=== PATIENT | male | born 1950 | race Caucasian/White ===

== ENCOUNTER 2023-01-19 11:10 | Inpatient (IN) | payer MEDICARE, SELFPAY ==
[2023-01-19 11:16] VITALS: BP 119/79; PULSE 69; RESP 16; O2SAT 96
--- NOTE | 2023-01-19 16:21 | PM.IMHP1 ---
Hospitalist- H&P: MARLA History of Present Illness Date Seen: 01/19/23 Chief complaint: Inpatient respite Narrative: Zac Lala is a 72 year old male admitted to hospice respite care on 01/19. He was admitted to hospice in September; at that time admission diagnosis was acute on chronic respiratory failure with severe hypoxia. His course is complicated by a progressive neurologic disease with symptom onset in March 2022. Workup in [place] did not reveal a formal diagnosis. In July of 2022, patient was hospitalized for progressive dysphagia and had a G-tube placed at that time with the recommendation for no p.o. intake given severe aspiration risk. He was diagnosed with COVID in August of 2022 with severe respiratory distress and hypoxia. Since admission, his lung function has subjectively and objectively improved, and he is currently not on supplemental oxygen. His neurologic condition continues to worsen and he remains nonambulatory. He has a Maya catheter in place and is incontinent of bowel. Zac occasionally perseverates and not being able to eat; the hospice team has had extensive discussions with patient and about goals of care. When specifically questioned, Zac does note that he is very uncomfortable with aspiration, but does like to have a root beer on occasion. Histories updated below. [facility] Medical History (Updated 01/19/23 @ 19:09 by Nu Alvarenga MD) History of gastrostomy tube placement G tube feedings ?Z93.1 - Gastrostomy status (ICD-10) Incontinent of feces ?R15.9 - Full incontinence of feces (ICD-10) Progressive neurological disorder ?R29.818 - Other symptoms and signs involving the nervous system (ICD-10) Allergic rhinitis ?J30.9 - Allergic rhinitis, unspecified (ICD-10) Depression ?F32.A - Depression, unspecified (ICD-10) MICHELLE (obstructive sleep apnea) ?G47.33 - Obstructive sleep apnea (adult) (pediatric) (ICD-10) CAD (coronary artery disease) ?I25.10 - Atherosclerotic heart disease of [place] coronary artery without angina pectoris (ICD-10) Paroxysmal atrial fibrillation ?I48.0 - Paroxysmal atrial fibrillation (ICD-10) Surgical History (Updated 01/19/23 @ 19:09 by Nu Alvarenga MD) S/P CABG x 3 ?Z95.1 - Presence of aortocoronary bypass graft (ICD-10) Social History (Updated 01/19/23 @ 19:10 by Nu Alvarenga MD) Narrative: Lives with Shanae in [place]. Hospice patient. DNR/DNI No current smoking or ETOH use. 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 Meds Home Medications and Allergies Home Medications Medication Instructions Recorded Confirmed Type atropine 1 % eye drops 2 drp PO Q2H PRN 01/19/23 01/19/23 History carvedilol 12.5 mg tablet 12.5 mg PO Q12H 01/19/23 01/19/23 History duloxetine 30 mg capsule,delayed 30 mg feeding tube DAILY 01/19/23 01/19/23 History release sprinkle haloperidol lactate 2 mg/mL oral 1 mg feeding tube Q6H PRN 01/19/23 01/19/23 History concentrate hyoscyamine sulfate 0.125 mg 0.125 mg PO Q4-6H PRN 01/19/23 01/19/23 History sublingual tablet lansoprazole 30 mg delayed 30 mg feeding tube DAILY 01/19/23 01/19/23 History release,disintegrating tablet lidocaine 4 % topical patch 1 patch topical DAILY 01/19/23 01/19/23 History lorazepam 2 mg/mL oral concentrate 1 mg feeding tube BID@09,16 01/19/23 01/19/23 History morphine concentrate 100 mg/5 mL 5 - 20 mg PO Q1H PRN 01/19/23 01/19/23 History (20 mg/mL) oral solution polyethylene glycol 3350 17 gram 17 g feeding tube DAILY 01/19/23 01/19/23 History oral powder packet quetiapine 25 mg tablet 75 mg feeding tube BID 01/19/23 01/19/23 History Allergies Allergy/AdvReac Type Severity Reaction Status Date / Time No Known Drug Allergies Allergy Verified 01/19/23 16:00 Exam Narrative: Exam Narrative: Zac is lying in bed comfortably and answering questions appropriately. He does occasionally perseverate on the barium swallow exam was done earlier this year that led to his NPO recommendation, but he is redirectable. Const: Vital Signs, click to edit/add: Vital Signs - 24 hr 01/19/23 11:16 Pulse Rate [Pulse Oximeter] 69 Respiratory Rate 16 Blood Pressure [Le ft Arm] 119/79 Pulse Oximetry 96 Oxygen Delivery Me thod Room Air Assessment and Plan Assessment and plan (1) Hospice care patient: Status: Acute (2) At high risk for aspiration: Status: Acute (3) Progressive neurological disorder: Status: Acute Plan - comfort focused measures during respite stay - occasional root beer per home routine
[2023-01-19] MEDS: LORazepam 1 MG TABLET PO (16:42)
--- NOTE | 2023-01-19 17:09 | PC.NURSE ---
Addendum entered by Maria Luisa Rehman RN 01/19/23 19:16: When up to [facility] via josefa for BM, noted small amount of blood when wiping, when looked at bottom is red and blanchable with small laceration on coccyx, cleansed and mepilex applied. Original Note: Arrived with hospice nurse Michelle present. Nurse to Nurse given in room. Pt alert, oriented, and pleasant and using call light appropriately. Pt uses Josefa lift to transfer. Pt has mepilex over bilateral ankles, skin blanchable, feet elevated on pillows. PEG feeding done per /caregiver instructions. Pt tolerated well. Pt denies pain, resting comfortably. Maya catheter present and patent.
[2023-01-19] MEDS: ACETAMINOPHEN 500 MG TABLET 1000 MG FEED TUBE (20:10)
[2023-01-19] MEDS: carvediloL 6.25 MG TABLET 12.5 MG PO (20:12)
[2023-01-19] MEDS: QUETIAPINE 25 MG TABLET 75 MG PO (20:12)
--- NOTE | 2023-01-20 06:42 | PC.NURSE ---
Pt alert and oriented x2, pt knows he is in hospital and why he is here but could not recall day of week. Pt pleasant and cooperative. Pt reports 1/10 pain in lower back, pain managed with scheduled medications and repositioning. Pt slept throughout most of night. Night uneventful.
[2023-01-20] MEDS: OMEPRAZOLE 20 MG CAPSULE DR PO (06:47)
[2023-01-20 08:44] VITALS: BP 114/78; PULSE 75; RESP 18; TEMP 36.7; O2SAT 100
[2023-01-20] MEDS: LIDOCAINE 5% PATCH 1 PATCH TRANSDERMA (10:17)
[2023-01-20] MEDS: ACETAMINOPHEN 500 MG TABLET 1000 MG FEED TUBE ×2 (10:17→21:07)
[2023-01-20] MEDS: DULOXETINE 30 MG CAPSULE DR PO (10:17)
[2023-01-20] MEDS: carvediloL 6.25 MG TABLET 12.5 MG PO ×2 (10:17→21:07)
[2023-01-20] MEDS: polyethylene glycoL 3350 17 GM PACK PO (10:18)
[2023-01-20] MEDS: LORazepam 1 MG TABLET PO ×2 (10:18→17:16)
[2023-01-20] MEDS: QUETIAPINE 25 MG TABLET 75 MG PO ×2 (13:03→21:06)
[2023-01-20] MEDS: CALCIUM CARBONATE 500 MG CHEW PO (13:04)
--- NOTE | 2023-01-20 19:02 | PC.NURSE ---
Nursing Care Hours: [id number] Pt this shift calm and cooperative, alert. Oriented to self and place. At times is confused aeb thinking that he switched rooms and needed to get back to his room so his can find him. Reoriented to place and situation. Pt is fidgety with Maya bag and restless in bed. Catheter patent, dark cloudy u/o, no BM. VSS in morning. Scant scratch to L logan, cleaned and band-aid applied.
[2023-01-21] MEDS: OMEPRAZOLE 20 MG CAPSULE DR PO (06:37)
--- NOTE | 2023-01-21 06:50 | PC.NURSE ---
Pt is alert and oriented x3, can be forgetful with time. Afebrile. Pt reports 1/10 back and left hip pain, pt was repositioned and pt reported pain feeling better. Pt stated ?I prefer leaning towards my left side.? Pt denies, chest pain, SOB and N/V.?Pt slept throughout most of night.?Night uneventful.
[2023-01-21 08:15] VITALS: BP 115/77; PULSE 79; RESP 16; TEMP 36.4; O2SAT 98
[2023-01-21] MEDS: LIDOCAINE 5% PATCH 1 PATCH TRANSDERMA (09:20)
[2023-01-21] MEDS: ACETAMINOPHEN 500 MG TABLET 1000 MG FEED TUBE ×2 (09:21→20:55)
[2023-01-21] MEDS: carvediloL 6.25 MG TABLET 12.5 MG PO ×2 (09:21→20:56)
[2023-01-21] MEDS: DULOXETINE 30 MG CAPSULE DR PO (09:21)
[2023-01-21] MEDS: QUETIAPINE 25 MG TABLET 75 MG PO ×2 (09:21→20:57)
[2023-01-21] MEDS: polyethylene glycoL 3350 17 GM PACK PO (09:21)
[2023-01-21] MEDS: LORazepam 1 MG TABLET PO ×2 (09:26→16:07)
--- NOTE | 2023-01-21 18:20 | PC.NURSE ---
Pt alert and oriented. Pt had no complaints of pain. Pt up to chair during shift. Pt Americo lift and tolerated well. Pt had medical claims assistant visit in morning and children's aide with Pt majority of afternoon. ?Pt received three tube feedings at 830am, 1230pm and 1800. ?
[2023-01-21] MEDS: HYOSCYAMINE SULFATE 0.125 MG TAB PO (20:56)
[2023-01-21] MEDS: LORazepam 0.5 MG TABLET PO (20:57)
[2023-01-22] MEDS: OMEPRAZOLE 20 MG CAPSULE DR PO (06:10)
[2023-01-22 08:00] VITALS: BP 113/74; PULSE 75; RESP 18; TEMP 36.6; O2SAT 98
[2023-01-22] MEDS: HYOSCYAMINE SULFATE 0.125 MG TAB PO ×3 (08:38→21:23)
[2023-01-22] MEDS: polyethylene glycoL 3350 17 GM PACK PO (08:40)
[2023-01-22] MEDS: ACETAMINOPHEN 500 MG TABLET 1000 MG FEED TUBE ×2 (08:42→21:22)
[2023-01-22] MEDS: LORazepam 1 MG TABLET PO ×2 (08:42→15:29)
[2023-01-22] MEDS: carvediloL 6.25 MG TABLET 12.5 MG PO ×2 (08:43→21:23)
[2023-01-22] MEDS: DULOXETINE 30 MG CAPSULE DR PO (08:44)
[2023-01-22] MEDS: LIDOCAINE 5% PATCH 1 PATCH TRANSDERMA (08:44)
[2023-01-22] MEDS: QUETIAPINE 25 MG TABLET 75 MG PO ×2 (08:45→21:24)
--- NOTE | 2023-01-22 13:15 | PC.NURSE ---
PATIENT ON BEDREST WITH STAFF PROVIDING REPOSITIONING Q2H. OWEN CATHETER PATENT AND DRAINING CLEAR PALE YELLOW URINE WITH NO ODOR OR HEMATURIA NOTED. PROTECTIVE DRESSINGS REMAIN IN PLACE TO COCCYX AND BILATERAL ANKLES. PATIENT NOTED TO BE ALERT & ORIENTED TO SELF AND HOSPITAL ENVIRONMENT THOUGH CONFUSED REGARDING CORRECT PLACE TODAY. ALL MEDS GIVEN BY G TUBE OTHER THAN PO HYOSYCAMINE. NO BM NOTED SO FAR THIS SHIFT THOUGH BOWEL SOUNDS ARE NOTED TO BE ACTIVE IN ALL FOUR QUADRANTS. LUNG SOUNDS NOTED TO BE CLEAR TO ALL LOBES BILATERALLY. VSS AND PATIENT HAS BEEN AFEBRILE. HE HAS BEEN DENYING PAIN WHEN ASKED. G TUBE PATENT AND FLUSHED WITHOUT DIFFICULTY. CALL LIGHT WITHIN REACH.
[2023-01-22] MEDS: bisacodyL 10 MG SUPP.RECT PR (18:07)
--- NOTE | 2023-01-22 18:17 | PC.NURSE ---
Bank Clerk provided new protective dressing to L inner thigh this shift as Hospice PROMOTIONS OFFICER reported old dressing came off with AM cares. Bank Clerk visualized no open areas to skin.
--- NOTE | 2023-01-22 18:44 | PC.NURSE ---
While this sports book writer was performing patient's evening feeding by PEG tube, pt reported, I just want to be done with this tube business. I was not aware this was going to be a superintendent container terminal thing. Pt talking about how he misses having [employer] and coffee and voicing frustrations with having PEG tube fpc. Business Objects Architect did leave note for MD providing update of patient's comments regarding not wanting to continue with PEG tube. Preceptor RN also updated.
[2023-01-22] MEDS: LORazepam 0.5 MG TABLET PO (21:23)
[2023-01-23] MEDS: OMEPRAZOLE 20 MG CAPSULE DR PO (06:54)
[2023-01-23 07:58] VITALS: BP 113/81; PULSE 76; RESP 18; TEMP 37.1; O2SAT 99
--- NOTE | 2023-01-23 08:13 | PC.NURSE ---
Patient pleasant and cooperative with cares. Remained in bed. Denied pain. G-tube patent and medications given without any resistance.
[2023-01-23] MEDS: HYOSCYAMINE SULFATE 0.125 MG TAB PO ×3 (08:20→20:18)
[2023-01-23] MEDS: LORazepam 1 MG TABLET PO ×2 (08:21→15:43)
[2023-01-23] MEDS: ACETAMINOPHEN 500 MG TABLET 1000 MG FEED TUBE ×2 (08:22→20:18)
[2023-01-23] MEDS: LIDOCAINE 5% PATCH 1 PATCH TRANSDERMA (08:22)
[2023-01-23] MEDS: carvediloL 6.25 MG TABLET 12.5 MG PO ×2 (08:23→20:18)
[2023-01-23] MEDS: QUETIAPINE 25 MG TABLET 75 MG PO ×2 (08:24→20:18)
[2023-01-23] MEDS: polyethylene glycoL 3350 17 GM PACK PO (08:24)
[2023-01-23] MEDS: DULOXETINE 30 MG CAPSULE DR PO (08:24)
--- NOTE | 2023-01-23 09:22 | PC.SOCIAL ---
Discharge Planning: Called spouse to clarify discharge plan. Marycruz Lala [phone] states that hospice patient will be picked up on Wednesday 01/24 at 13:00. She states that it is the same place from [place] that dropped him off. She could not remember the name of the agency, but she states it will be the same person that brought him in on Thursday. Marycruz asked that if the green transfer harness (belonging to [facility]'s medical supplier) for the Americo come back in his wheel chair -as she will need it to get him back in bed. She will call the [facility] to pick it up when they are done with it. Patient will be transferring to a new hospice but not until Friday 01/26. For any questions call Hospice at [phone] or the spouse Marycruz at [phone].
--- NOTE | 2023-01-23 14:51 | PC.NURSE ---
End of shift: Patient states he has chronic minimal discomfort to L leg which has been managed with rest, repositioning and scheduled Tylenol. Green Building Design Specialist did offer for staff to assist patient into the chair though patient stated he is more comfortable in bed. Patient noted to have some redness to top of penis under foreskin which core rescuer reports comes and goes. Staff applied zinc protective cream to this area to promote healing. No s/sx of infection observed at PEG tube insertion site. Staff continue to provide repositioning Q2H. Maya catheter remains patent with no odor or hematuria noted. Bed alarm on. Patient noted to have dry skin to bilateral feet with lotion applied. Lung sounds clear to all lobes bilaterally and bowel sounds have been active x 4. No c/o N/V or CP. HOB elevated 30-45 degrees due to patient being on PEG gravity feedings along with high aspiration risk. VSS and patient has been afebrile.
[2023-01-23] MEDS: LORazepam 0.5 MG TABLET PO (20:17)
--- NOTE | 2023-01-23 22:24 | PC.NURSE ---
fit [id number]- Patient is able to make needs known, though he is forgetful/confused. He is turned and repositioned with pillows for offloading. G-tube used for med administration and feed. Maya is patent and draining.
[2023-01-24] MEDS: OMEPRAZOLE 20 MG CAPSULE DR PO (06:43)
[2023-01-24 08:00] VITALS: BP 99/69; PULSE 73; RESP 18; TEMP 37.1; O2SAT 99
[2023-01-24] MEDS: LIDOCAINE 5% PATCH 1 PATCH TRANSDERMA (08:42)
[2023-01-24] MEDS: LORazepam 1 MG TABLET PO (08:42)
[2023-01-24] MEDS: DULOXETINE 30 MG CAPSULE DR PO (08:43)
[2023-01-24] MEDS: carvediloL 6.25 MG TABLET 12.5 MG PO (08:43)
[2023-01-24] MEDS: ACETAMINOPHEN 500 MG TABLET 1000 MG FEED TUBE (08:43)
[2023-01-24] MEDS: HYOSCYAMINE SULFATE 0.125 MG TAB PO (08:43)
[2023-01-24] MEDS: polyethylene glycoL 3350 17 GM PACK PO (08:44)
[2023-01-24] MEDS: QUETIAPINE 25 MG TABLET 75 MG PO (08:44)
== END 2023-01-24 13:38 | disposition hospice, inpatient (51) | DRG 951 ==
PROVIDERS: Admitting Provider Family Medicine; Visit Provider Family Medicine
DX: Z51.5 Encounter for palliative care (principal); J96.21 Acute and chronic respiratory failure with hypoxia; G31.9 Degenerative disease of nervous system, unspecified; Z93.1 Gastrostomy status; R13.19 Other dysphagia; R29.818 Other symptoms and signs involving the nervous system; R15.9 Full incontinence of feces; G47.33 Obstructive sleep apnea (adult) (pediatric); I48.0 Paroxysmal atrial fibrillation; I25.10 Atherosclerotic heart disease of native coronary artery without angina pectoris; Z95.1 Presence of aortocoronary bypass graft
CPT/HCPCS: A9270